=== PATIENT | female | born 1980 | race Caucasian/White ===

== ENCOUNTER 2017-06-19 22:30 | Emergency (ER) | payer MEDICAID ==
[~2017-06-19] VITALS: Ht 147.3 cm; Wt 80.9 kg
[~2017-06-19 22:30] MED LIST: CEPH500C5 PO; CLOT15CR5 TOP; CYCL-1 PO; HYDR-3965 PO; HYDR1TAB PO; IBUP-1051 PO; IBUP-1984 PO; IBUP-814 PO; LEVO500T89 PO; LIDO20SO16 PO; NO HOME MEDS; OMEP40CA37 PO; ONDA4TAB12 PO; ONDA8TAB9 PO; PHEN-873 PO; PROM25TA14 PO
[2017-06-20] MEDS ORDERED: dexamethasone sod phosphate 10mg/ml inj IM STA (01:42)
[2017-06-20] MEDS ORDERED: diphenhydrAMINE 50 mg/ml inj IM ONE (01:45)
[2017-06-20] MEDS ORDERED: proCHLORperazine 10 MG/2 ml inj IM ONE (01:45)
[2017-06-20] MEDS ORDERED: ketorolac trometh. 30mg/ml inj. IM ONE (02:35)
[2017-06-20 03:04] VITALS: BP 132/104
== END 2017-06-20 03:05 | disposition home or self-care (01) ==
LOC: ER 22:31
DX: G43.909 Migraine, unspecified, not intractable, without status migrainosus (principal); I10 Essential (primary) hypertension; J45.909 Unspecified asthma, uncomplicated; Z88.8 Allergy status to other drugs, medicaments and biological substances; Z79.899 Other long term (current) drug therapy; Z98.51 Tubal ligation status
CPT/HCPCS: 96372; 99284; J0780; J1100; J1200; J1885

== ENCOUNTER 2018-03-29 12:23 | Emergency (ER) | payer MEDICAID ==
[~2018-03-29] VITALS: Ht 147.3 cm; Wt 79.3 kg
[~2018-03-29 12:23] MED LIST changes: -CEPH500C5 PO; +PHEN-786 PO; -PHEN-873 PO
[2018-03-29 12:36] VITALS: BP 135/78
[2018-03-29] MEDS ORDERED: HYDROcodone/acetaminophen 10/325mg tab PO ONE (12:50)
[2018-03-29] MEDS ORDERED: HYDR-4353 PO (12:50)
[2018-03-29] MEDS ORDERED: ketorolac trometh inj. 60 MG/2 ML VIAL IM ONE (12:50)
[2018-03-29] MEDS ORDERED: orphenadrine citrate 60mg/2ml inj. IM ONE (12:50)
[2018-03-29] MEDS ORDERED: ORPH100T2 PO (12:50)
== END 2018-03-29 13:13 | disposition home or self-care (01) ==
LOC: ER 12:23
DX: M54.5 Low back pain (principal); I10 Essential (primary) hypertension; G89.29 Other chronic pain; J45.909 Unspecified asthma, uncomplicated; G43.909 Migraine, unspecified, not intractable, without status migrainosus; F17.200 Nicotine dependence, unspecified, uncomplicated; Z98.51 Tubal ligation status; Z88.8 Allergy status to other drugs, medicaments and biological substances; Z79.2 Long term (current) use of antibiotics; Z79.899 Other long term (current) drug therapy
CPT/HCPCS: 96372; 99284; J1885; J2360

== ENCOUNTER 2018-04-23 16:05 | Emergency (ER) | payer MEDICAID ==
[~2018-04-23] VITALS: Ht 147.3 cm; Wt 76.5 kg
[~2018-04-23 16:05] MED LIST changes: +HYDR-4353 PO; +ORPH100T2 PO
[2018-04-23] MEDS ORDERED: normal saline 1000ml 1,000 ML IV ONE (16:45)
[2018-04-23] MEDS ORDERED: ondansetron/PF 4mg/2ml inj IV ONE (16:45)
[2018-04-23 17:00] LABS: BASOPHILS % (AUTO) 0 % (0-1); EOSINOPHILS # (AUTO) 0.1 X10'3 (0-0.9); EOSINOPHILS % (AUTO) 0.9 % (0-6); HEMATOCRIT 42.1 % (35.0-45.0); LYMPHOCYTES # (AUTO) 0.6 X10'3 (1.1-4.8); LYMPHOCYTES % (AUTO) 4.5 % (21-51); MEAN CORPUSCULAR HEMOGLOBIN 27.6 PG (27.0-31.0); MEAN CORPUSCULAR HGB CONC 33.3 % (33.0-36.5); MEAN CORPUSCULAR VOLUME 82.8 FL (78-98); MEAN PLATELET VOLUME 9.9 FL (7.4-10.4); MONOCYTES # (AUTO) 0.3 X10'3 (0-0.9); MONOCYTES % (AUTO) 2.5 % (2-12); NEUTROPHILS # (AUTO) 12.4 X10'3 (1.8-7.7); NEUTROPHILS % (AUTO) 92.1 % (42-75); PLATELET COUNT 232 X10'3 (140-440); RED BLOOD COUNT 5.08 X10'6 (4.20-5.60); RED CELL DISTRIBUTION WIDTH 16.1 % (11.5-14.5); WHITE BLOOD COUNT 13.4 X10'3 (4.5-11.0)
[2018-04-23 17:16] LABS: ALANINE AMINOTRANSFERASE 26 U/L (12-78); ALBUMIN 3.7 G/DL (3.4-5.0); ALKALINE PHOSPHATASE 93 IU/L (46-116); ANION GAP 9 (8-16); ASPARTATE AMINO TRANSFERASE 18 U/L (10-37); BILIRUBIN,TOTAL 0.5 MG/DL (0.1-1.0); BLOOD UREA NITROGEN 13 MG/DL (7-18); BUN/CREATININE RATIO 16.9 (6.6-38.0); CALCIUM 8.9 MG/DL (8.5-10.1); CHLORIDE 105 MMOL/L (99-107); CREATININE 0.77 MG/DL (0.40-0.90); GLUCOSE 119 MG/DL (70-104); LIPASE 119 U/L (73-393); MAGNESIUM 1.7 MG/DL (1.5-2.4); POTASSIUM 3.8 MMOL/L (3.5-5.1); SODIUM 142 MMOL/L (135-145); TOTAL CARBON DIOXIDE 27.6 MMOL/L (24-32); TOTAL PROTEIN 7.3 G/DL (6.4-8.2); eGFR 83 ML/MIN
[2018-04-23] MEDS ORDERED: proCHLORperazine 10 MG/2 ml inj IV ONE (18:50)
[2018-04-23 19:06] VITALS: BP 137/78
[2018-04-23 19:54] LABS: CLARITY,URINE CLEAR (Clear); COLOR,URINE YELLOW (Yellow); GLUCOSE, URINE NEGATIVE (Neg); KETONES,URINE >=80 mg/dl (Neg); LEUKOCYTE ESTERASE ,URINE NEGATIVE (Neg); NITRITES, URINE NEGATIVE (Neg); OCCULT BLOOD,URINE TRACE-INTACT (Neg); PROTEIN,URINE NEGATIVE (Neg)
[2018-04-23 20:15] LABS: UA COLLECTION TYPE CLN CATCH MIDSTREAM
[2018-04-23 20:16] LABS: BACTERIA,URINE NONE SEEN /HPF (Neg); RBC,URINE 0-2 /HPF (0-2); SQUAMOUS EPITHELIAL CELL,UR FEW /LPF (FEW); WBC,URINE NONE SEEN /HPF (0-4)
== END 2018-04-23 19:54 | disposition home or self-care (01) ==
LOC: ER 16:05
DX: R11.2 Nausea with vomiting, unspecified (principal); R51 Headache; I10 Essential (primary) hypertension; J45.909 Unspecified asthma, uncomplicated; G89.29 Other chronic pain; Z98.51 Tubal ligation status; Z88.8 Allergy status to other drugs, medicaments and biological substances; Z79.899 Other long term (current) drug therapy
CPT/HCPCS: 36415; 80053; 81001; 83690; 83735; 85025; 96361; 96374; 96375; 99284; J0780; J2405

== ENCOUNTER 2018-07-19 11:20 | Emergency (ER) | payer MEDICAID ==
[~2018-07-19] VITALS: Ht 147.3 cm; Wt 77.0 kg
[~2018-07-19 11:20] MED LIST changes: -HYDR-4353 PO
[2018-07-19] MEDS ORDERED: ketorolac trometh inj. 60 MG/2 ML VIAL IM ONE (12:25)
[2018-07-19] MEDS ORDERED: IBUP-1984 PO (12:28)
[2018-07-19] MEDS ORDERED: CYCL-1 PO (12:28)
[2018-07-19] MEDS ORDERED: ACET-3067 PO (12:28)
[2018-07-19 12:41] VITALS: BP 149/86
== END 2018-07-19 12:45 | disposition home or self-care (01) ==
LOC: ER 11:21
DX: M54.5 Low back pain (principal); G43.909 Migraine, unspecified, not intractable, without status migrainosus; I10 Essential (primary) hypertension; J45.909 Unspecified asthma, uncomplicated; G89.29 Other chronic pain; M54.9 Dorsalgia, unspecified; Z98.51 Tubal ligation status; Z88.8 Allergy status to other drugs, medicaments and biological substances
CPT/HCPCS: 96372; 99283; J1885

== ENCOUNTER 2018-08-19 10:10 | Emergency (ER) | payer MEDICAID ==
[~2018-08-19] VITALS: Ht 147.3 cm; Wt 75.9 kg
[2018-08-19 10:16] VITALS: BP 160/97
[2018-08-19] MEDS ORDERED: CEPH-571 PO (11:20)
== END 2018-08-19 11:24 | disposition home or self-care (01) ==
LOC: ER 10:10
DX: S00.461A Insect bite (nonvenomous) of right ear, initial encounter (principal); H60.11 Cellulitis of right external ear; G43.909 Migraine, unspecified, not intractable, without status migrainosus; I10 Essential (primary) hypertension; J45.909 Unspecified asthma, uncomplicated; G89.29 Other chronic pain; Z98.51 Tubal ligation status; Z88.8 Allergy status to other drugs, medicaments and biological substances; Z79.899 Other long term (current) drug therapy; W57.XXXA Bitten or stung by nonvenomous insect and other nonvenomous arthropods, initial encounter; Y93.89 Activity, other specified; Y92.89 Other specified places as the place of occurrence of the external cause; Y99.8 Other external cause status
CPT/HCPCS: 99283

== ENCOUNTER 2018-12-01 12:34 | Emergency (ER) | payer MEDICAID ==
[~2018-12-01] VITALS: Ht 147.3 cm; Wt 83.2 kg
[~2018-12-01 12:34] MED LIST changes: +CEPH-571 PO
[2018-12-01] MEDS ORDERED: normal saline 1000ML IV soln IVB ONE (13:25)
[2018-12-01] MEDS ORDERED: ketorolac trometh. 30mg/ml inj. IV ONE (13:25)
[2018-12-01] MEDS ORDERED: HYDROcodone/acetaminophen 5mg/325mg tablet PO ONE (13:25)
[2018-12-01 14:06] LABS: ALANINE AMINOTRANSFERASE 14 U/L (12-78); ALBUMIN 3.4 G/DL (3.4-5.0); ALBUMIN/GLOBULIN RATIO 0.9 (1.1-1.5); ALKALINE PHOSPHATASE 77 IU/L (46-116); ANION GAP 4 (8-16); ASPARTATE AMINO TRANSFERASE 9 U/L (10-37); BILIRUBIN,TOTAL 0.2 MG/DL (0.1-1.0); BLOOD UREA NITROGEN 10 MG/DL (7-18); CALCIUM 9.4 MG/DL (8.5-10.1); CHLORIDE 106 MMOL/L (99-107); CREATININE 0.77 MG/DL (0.40-0.90); GLUCOSE 95 MG/DL (70-104); SODIUM 138 MMOL/L (135-145); TOTAL CARBON DIOXIDE 28.3 MMOL/L (24-32); eGFR 83 ML/MIN
--- NOTE | 2018-12-01 14:24 | NUR ---
PT TRIED TO VOID, MAYBE 5CC IN CUP, RED URINE. TOLD PT TO TRY TO VOID AFTER BAG OF FLUID IS IN.
[2018-12-01 15:00] LABS: BASOPHILS % (AUTO) 0.7 % (0-1); EOSINOPHILS # (AUTO) 0.1 X10'3 (0-0.9); EOSINOPHILS % (AUTO) 1.9 % (0-6); HEMATOCRIT 35.6 % (35.0-45.0); HEMOGLOBIN 11.8 g/dl (12.0-16.0); LYMPHOCYTES # (AUTO) 2.1 X10'3 (1.1-4.8); LYMPHOCYTES % (AUTO) 29.3 % (21-51); MEAN CORPUSCULAR HEMOGLOBIN 27.5 PG (27.0-31.0); MEAN CORPUSCULAR VOLUME 83.2 FL (78-98); MEAN PLATELET VOLUME 9.4 FL (7.4-10.4); MONOCYTES # (AUTO) 0.8 X10'3 (0-0.9); MONOCYTES % (AUTO) 10.6 % (2-12); NEUTROPHILS # (AUTO) 4.1 X10'3 (1.8-7.7); NEUTROPHILS % (AUTO) 57.5 % (42-75); PLATELET COUNT 236 X10'3 (140-440); RED BLOOD COUNT 4.28 X10'6 (4.20-5.60); RED CELL DISTRIBUTION WIDTH 16.2 % (11.5-14.5); WHITE BLOOD COUNT 7.2 X10'3 (4.5-11.0)
[2018-12-01] MEDS ORDERED: KETO10TA2 PO (15:28)
[2018-12-01 15:35] VITALS: BP 124/85
== END 2018-12-01 15:39 | disposition home or self-care (01) ==
LOC: ER 12:34
DX: N93.8 Other specified abnormal uterine and vaginal bleeding (principal); R10.84 Generalized abdominal pain; G43.909 Migraine, unspecified, not intractable, without status migrainosus; I10 Essential (primary) hypertension; J45.909 Unspecified asthma, uncomplicated; G89.29 Other chronic pain; Z98.51 Tubal ligation status; Z88.8 Allergy status to other drugs, medicaments and biological substances; Z79.2 Long term (current) use of antibiotics; Z79.899 Other long term (current) drug therapy
CPT/HCPCS: 36415; 80053; 85025; 96374; 99283; J1885; J7030

== ENCOUNTER 2019-01-18 20:33 | Emergency (ER) | payer MEDICAID ==
[~2019-01-18] VITALS: Ht 147.3 cm; Wt 80.0 kg
[~2019-01-18 20:33] MED LIST changes: +KETO10TA2 PO; +OMEP40CA13 PO; -OMEP40CA37 PO
[2019-01-18] MEDS ORDERED: HYDROcodone/acetaminophen 5mg/325mg tablet PO ONE (21:55)
[2019-01-18] MEDS ORDERED: diphenhydrAMINE 25mg capsule PO ONE (21:55)
[2019-01-18] MEDS ORDERED: acetaminophen 325mg tablet PO ONE (21:55)
[2019-01-18] MEDS ORDERED: ondansetron 4mg rapidly disintigrating tab PO ONE (21:55)
[2019-01-18 22:02] LABS: BASOPHILS % (AUTO) 0.5 % (0-1); EOSINOPHILS # (AUTO) 0.1 X10'3 (0-0.9); EOSINOPHILS % (AUTO) 1.8 % (0-6); HEMATOCRIT 38.4 % (35.0-45.0); HEMOGLOBIN 12.8 g/dl (12.0-16.0); LYMPHOCYTES # (AUTO) 2.5 X10'3 (1.1-4.8); LYMPHOCYTES % (AUTO) 32.6 % (21-51); MEAN CORPUSCULAR HEMOGLOBIN 27.2 PG (27.0-31.0); MEAN CORPUSCULAR HGB CONC 33.2 g/dL (33.0-36.5); MEAN CORPUSCULAR VOLUME 81.8 FL (78-98); MEAN PLATELET VOLUME 9.6 FL (7.4-10.4); MONOCYTES # (AUTO) 0.7 X10'3 (0-0.9); MONOCYTES % (AUTO) 8.9 % (2-12); NEUTROPHILS # (AUTO) 4.4 X10'3 (1.8-7.7); NEUTROPHILS % (AUTO) 56.2 % (42-75); PLATELET COUNT 232 X10'3 (140-440); RED BLOOD COUNT 4.69 X10'6 (4.20-5.60); RED CELL DISTRIBUTION WIDTH 15.8 % (11.5-14.5); WHITE BLOOD COUNT 7.8 X10'3 (4.5-11.0)
[2019-01-18 22:11] LABS: ALANINE AMINOTRANSFERASE 22 U/L (12-78); ALBUMIN 3.4 G/DL (3.4-5.0); ALKALINE PHOSPHATASE 75 IU/L (46-116); ANION GAP 6 (8-16); ASPARTATE AMINO TRANSFERASE 14 U/L (10-37); BILIRUBIN,TOTAL 0.3 MG/DL (0.1-1.0); BLOOD UREA NITROGEN 17 MG/DL (7-18); BUN/CREATININE RATIO 17.2 (6.6-38.0); CALCIUM 8.2 MG/DL (8.5-10.1); CHLORIDE 108 MMOL/L (99-107); CREATININE 0.99 MG/DL (0.40-0.90); GLUCOSE 106 MG/DL (70-104); POTASSIUM 3.6 MMOL/L (3.5-5.1); SODIUM 141 MMOL/L (135-145); TOTAL CARBON DIOXIDE 27.5 MMOL/L (24-32); TOTAL PROTEIN 6.7 G/DL (6.4-8.2); eGFR 62 ML/MIN
[2019-01-18 22:23] LABS: URINE HCG NEGATIVE (NEG)
[2019-01-18 22:26] LABS: CLARITY,URINE SLIGHTLY CLOUDY (Clear); COLOR,URINE YELLOW (Yellow); GLUCOSE, URINE NEGATIVE (Neg); KETONES,URINE TRACE mg/dl (Neg); LEUKOCYTE ESTERASE ,URINE NEGATIVE (Neg); NITRITES, URINE NEGATIVE (Neg); OCCULT BLOOD,URINE LARGE (Neg); PROTEIN,URINE NEGATIVE (Neg); UROBILINOGEN,URINE 0.2 E.U/dL (0.2-1.0)
[2019-01-18 22:29] LABS: UA COLLECTION TYPE CLN CATCH MIDSTREAM
--- NOTE | 2019-01-18 22:29 | NUR ---
Patient currently rolling around on bed, laughing with friend who is at bedside and playing on cell phone.
[2019-01-18 22:32] LABS: BACTERIA,URINE NONE SEEN /HPF (Neg); MUCUS STRANDS FEW /LPF (Neg); SQUAMOUS EPITHELIAL CELL,UR MANY /LPF (FEW); WBC,URINE NONE SEEN /HPF (0-4)
[2019-01-18] MEDS ORDERED: HYDR-3965 PO (22:40)
[2019-01-18] MEDS ORDERED: DIPH25CA83 PO (22:40)
[2019-01-18] MEDS ORDERED: ONDA8TAB6 PO (22:40)
[2019-01-18 22:50] VITALS: BP 127/65
== END 2019-01-18 22:51 | disposition home or self-care (01) ==
LOC: ER 20:33
DX: R10.9 Unspecified abdominal pain (principal); G43.909 Migraine, unspecified, not intractable, without status migrainosus; I10 Essential (primary) hypertension; J45.909 Unspecified asthma, uncomplicated; G89.29 Other chronic pain; F10.99 Alcohol use, unspecified with unspecified alcohol-induced disorder; Z98.51 Tubal ligation status; Z88.8 Allergy status to other drugs, medicaments and biological substances; Z79.899 Other long term (current) drug therapy; Y90.9 Presence of alcohol in blood, level not specified
CPT/HCPCS: 36415; 80053; 81001; 81025; 85025; 85610; 99284; J2405; Q0163

== ENCOUNTER 2019-07-06 16:21 | Emergency (ER) | payer MEDICAID ==
[~2019-07-06] VITALS: Ht 147.3 cm; Wt 83.6 kg
[~2019-07-06 16:21] MED LIST changes: +DIPH25CA83 PO; +ONDA8TAB6 PO
[2019-07-06 17:55] LABS: BASOPHILS % (AUTO) 0.4 % (0-1); EOSINOPHILS # (AUTO) 0.1 X10'3 (0-0.9); EOSINOPHILS % (AUTO) 0.9 % (0-6); HEMATOCRIT 36.8 % (35.0-45.0); HEMOGLOBIN 12.3 g/dl (12.0-16.0); LYMPHOCYTES # (AUTO) 1.5 X10'3 (1.1-4.8); LYMPHOCYTES % (AUTO) 14.3 % (21-51); MEAN CORPUSCULAR HEMOGLOBIN 26.4 PG (27.0-31.0); MEAN CORPUSCULAR HGB CONC 33.4 g/dL (33.0-36.5); MEAN PLATELET VOLUME 8.9 FL (7.4-10.4); MONOCYTES # (AUTO) 0.8 X10'3 (0-0.9); MONOCYTES % (AUTO) 7.5 % (2-12); NEUTROPHILS % (AUTO) 76.9 % (42-75); PLATELET COUNT 284 X10'3 (140-440); RED BLOOD COUNT 4.66 X10'6 (4.20-5.60); RED CELL DISTRIBUTION WIDTH 15.6 % (11.5-14.5); WHITE BLOOD COUNT 10.4 X10'3 (4.5-11.0)
[2019-07-06 18:12] LABS: ALANINE AMINOTRANSFERASE 27 U/L (12-78); ALBUMIN 3.3 G/DL (3.4-5.0); ALBUMIN/GLOBULIN RATIO 0.8 (1.1-1.5); ALKALINE PHOSPHATASE 93 IU/L (46-116); ANION GAP 9 (8-16); ASPARTATE AMINO TRANSFERASE 18 U/L (10-37); BILIRUBIN,TOTAL 0.3 MG/DL (0.1-1.0); BLOOD UREA NITROGEN 7 MG/DL (7-18); BUN/CREATININE RATIO 9.5 (6.6-38.0); CALCIUM 8.9 MG/DL (8.5-10.1); CHLORIDE 104 MMOL/L (99-107); CREATININE 0.74 MG/DL (0.40-0.90); GLUCOSE 106 MG/DL (70-104); LIPASE 65 U/L (73-393); POTASSIUM 3.7 MMOL/L (3.5-5.1); SODIUM 140 MMOL/L (135-145); TOTAL CARBON DIOXIDE 27.4 MMOL/L (24-32); TOTAL PROTEIN 7.7 G/DL (6.4-8.2); eGFR 87 ML/MIN
[2019-07-06 18:21] LABS: URINE HCG NEGATIVE (NEG)
[2019-07-06 18:23] LABS: CLARITY,URINE TURBID (Clear); COLOR,URINE YELLOW (Yellow); GLUCOSE, URINE NEGATIVE (Neg); KETONES,URINE 40 mg/dl (Neg); LEUKOCYTE ESTERASE ,URINE LARGE (Neg); NITRITES, URINE NEGATIVE (Neg); OCCULT BLOOD,URINE MODERATE (Neg); PROTEIN,URINE TRACE mg/dl (Neg); UA COLLECTION TYPE VOIDED
[2019-07-06 18:28] LABS: SQUAMOUS EPITHELIAL CELL,UR MANY /LPF (FEW)
--- NOTE | 2019-07-06 18:30 | NUR ---
LAB REJECTED URINE FOR CULTURE
[2019-07-06 18:31] LABS: MUCUS STRANDS FEW /LPF (Neg); TRANSITIONAL EPI CELLS,URINE FEW /HPF; WBC,URINE TNTC /HPF (0-4)
[2019-07-06 18:33] LABS: BACTERIA,URINE 4+ /HPF (Neg)
[2019-07-06] MEDS ORDERED: glycerin ADULT rectal suppository RC ONE (19:40)
[2019-07-06] MEDS ORDERED: magnesium citrate 296ml oral solution PO ONE (19:40)
[2019-07-06] MEDS ORDERED: ondansetron 4mg rapidly disintigrating tab PO STA (20:35)
--- NOTE | 2019-07-06 20:35 | NUR ---
PT STATES SHE HAD A SMALL BM, REPORTS FEELING VERY NAUSEATED
--- NOTE | 2019-07-06 21:47 | NUR ---
PT UNABLE TO PASS PO CHALLENGE "I TRIED BUT I FEEL LIKE VOMITING", Yasmin RUFFIN AWARE AND GAVE VERBAL ORDER FOR COMPAZINE 10MG PO X1 NOW
[2019-07-06] MEDS ORDERED: proCHLORperazine 10mg tablet PO ONE (21:50)
[2019-07-06] MEDS ORDERED: ondansetron 4mg rapidly disintigrating tab PO ONE (22:15)
--- NOTE | 2019-07-06 22:15 | NUR ---
PT ALLERGIC TO COMPYasmin RITTER AWARE AND GAVE VERBAL ORDER FOR ZOFRAN 4MG ODT
--- NOTE | 2019-07-06 22:19 | NUR ---
pt up to the bathroom again.
[2019-07-06 22:37] VITALS: BP 111/64
== END 2019-07-06 22:38 | disposition home or self-care (01) ==
LOC: ER 16:22
DX: K59.00 Constipation, unspecified (principal); I10 Essential (primary) hypertension; J45.909 Unspecified asthma, uncomplicated; G89.29 Other chronic pain; Z90.710 Acquired absence of both cervix and uterus; Z98.51 Tubal ligation status; Z88.8 Allergy status to other drugs, medicaments and biological substances; Z79.2 Long term (current) use of antibiotics; Z79.899 Other long term (current) drug therapy
CPT/HCPCS: 36415; 80053; 81001; 81025; 83690; 85025; 99284; Q0164

== ENCOUNTER 2019-12-18 19:20 | Emergency (ER) | payer MEDICAID ==
[~2019-12-18] VITALS: Ht 147.3 cm; Wt 84.0 kg
[~2019-12-18 19:20] MED LIST changes: +CLOT15CR35 TOP; -CLOT15CR5 TOP
[2019-12-18 19:33] VITALS: BP 167/102
[2019-12-18] MEDS ORDERED: DOXYCYCLINE 100MG CAPSULE PO STA (21:19)
[2019-12-18] MEDS ORDERED: cephalexin 250mg capsule PO ONE (21:20)
[2019-12-18] MEDS ORDERED: DOXY100C2 PO (21:33)
[2019-12-18] MEDS ORDERED: CEPH500C5 PO (21:33)
[2019-12-18] MEDS ORDERED: ondansetron 4mg/5ml UD cup PO ONE (21:35)
[2019-12-18] MEDS ORDERED: ondansetron 4mg rapidly disintigrating tab PO ONE (21:45)
== END 2019-12-18 21:48 | disposition home or self-care (01) ==
LOC: ER 19:20
DX: L03.114 Cellulitis of left upper limb (principal); L03.113 Cellulitis of right upper limb; L73.9 Follicular disorder, unspecified; G43.909 Migraine, unspecified, not intractable, without status migrainosus; I10 Essential (primary) hypertension; J45.909 Unspecified asthma, uncomplicated; G89.29 Other chronic pain; Z90.710 Acquired absence of both cervix and uterus; Z98.51 Tubal ligation status; Z72.89 Other problems related to lifestyle; Z88.8 Allergy status to other drugs, medicaments and biological substances; Z79.899 Other long term (current) drug therapy
CPT/HCPCS: 99284

== ENCOUNTER 2019-12-25 16:41 | Emergency (ER) | payer MEDICAID ==
[~2019-12-25] VITALS: Ht 147.3 cm; Wt 79.5 kg
[~2019-12-25 16:41] MED LIST changes: +CEPH500C5 PO; +DOXY100C2 PO
[2019-12-25 16:45] VITALS: BP 132/84
[2019-12-25] MEDS ORDERED: SULF1TAB49 PO (17:06)
== END 2019-12-25 17:10 | disposition home or self-care (01) ==
LOC: ER 16:42
DX: L03.114 Cellulitis of left upper limb (principal); R50.9 Fever, unspecified; R11.10 Vomiting, unspecified; G43.909 Migraine, unspecified, not intractable, without status migrainosus; I10 Essential (primary) hypertension; J45.909 Unspecified asthma, uncomplicated; G89.29 Other chronic pain; Z90.710 Acquired absence of both cervix and uterus; Z87.440 Personal history of urinary (tract) infections; Z98.51 Tubal ligation status; Z72.89 Other problems related to lifestyle; Z88.8 Allergy status to other drugs, medicaments and biological substances; Z79.2 Long term (current) use of antibiotics; Z79.899 Other long term (current) drug therapy
CPT/HCPCS: 99283

== ENCOUNTER 2020-02-29 17:19 | Emergency (ER) | payer MEDICAID ==
[~2020-02-29] VITALS: Ht 147.3 cm; Wt 80.0 kg
[~2020-02-29 17:19] MED LIST changes: -CEPH500C5 PO; -DOXY100C2 PO
[2020-02-29 17:43] VITALS: BP 158/81
== END 2020-02-29 18:19 | disposition home or self-care (01) ==
LOC: ER 17:20
DX: Z00.00 Encounter for general adult medical examination without abnormal findings (principal); G43.909 Migraine, unspecified, not intractable, without status migrainosus; I10 Essential (primary) hypertension; J45.909 Unspecified asthma, uncomplicated; G89.29 Other chronic pain; Z90.710 Acquired absence of both cervix and uterus; Z98.51 Tubal ligation status; Z72.89 Other problems related to lifestyle; Z88.8 Allergy status to other drugs, medicaments and biological substances; Z79.899 Other long term (current) drug therapy
CPT/HCPCS: 99281

== ENCOUNTER 2020-03-15 11:29 | Emergency (ER) | payer MEDICAID ==
[~2020-03-15] VITALS: Ht 147.3 cm; Wt 80.0 kg
[2020-03-15 11:30] VITALS: BP 133/81
[2020-03-15] MEDS ORDERED: ONDA4TAB6 PO (11:51)
== END 2020-03-15 12:01 | disposition home or self-care (01) ==
LOC: ER 11:29
DX: R53.83 Other fatigue (principal); R42 Dizziness and giddiness; R11.0 Nausea; Z20.828 Contact with and (suspected) exposure to other viral communicable diseases; G43.909 Migraine, unspecified, not intractable, without status migrainosus; I10 Essential (primary) hypertension; J45.909 Unspecified asthma, uncomplicated; G89.29 Other chronic pain; Z90.710 Acquired absence of both cervix and uterus; Z98.51 Tubal ligation status; Z72.89 Other problems related to lifestyle; Z88.8 Allergy status to other drugs, medicaments and biological substances; Z79.899 Other long term (current) drug therapy
CPT/HCPCS: 36415; 87635; 99283

== ENCOUNTER 2020-03-28 23:50 | Emergency (ER) | payer MEDICAID ==
[~2020-03-28] VITALS: Ht 147.3 cm; Wt 79.5 kg
[~2020-03-28 23:50] MED LIST changes: +ONDA4TAB6 PO
[2020-03-28 23:54] VITALS: BP 175/95
[2020-03-29 00:33] LABS: URINE HCG NEGATIVE (NEG)
[2020-03-29 00:33] LABS: BASOPHILS # (AUTO) 0.1 X10'3 (0-0.2); EOSINOPHILS # (AUTO) 0.1 X10'3 (0-0.9); EOSINOPHILS % (AUTO) 1.6 % (0-6); HEMATOCRIT 42.1 % (35.0-45.0); HEMOGLOBIN 14.6 g/dl (12.0-16.0); LYMPHOCYTES # (AUTO) 2.8 X10'3 (1.1-4.8); LYMPHOCYTES % (AUTO) 32.9 % (21-51); MEAN CORPUSCULAR HEMOGLOBIN 30.3 PG (27.0-31.0); MEAN CORPUSCULAR HGB CONC 34.7 g/dL (33.0-36.5); MEAN CORPUSCULAR VOLUME 87.5 FL (78-98); MEAN PLATELET VOLUME 9.5 FL (7.4-10.4); MONOCYTES # (AUTO) 0.8 X10'3 (0-0.9); MONOCYTES % (AUTO) 9.3 % (2-12); NEUTROPHILS # (AUTO) 4.6 X10'3 (1.8-7.7); NEUTROPHILS % (AUTO) 55.2 % (42-75); PLATELET COUNT 238 X10'3 (140-440); RED BLOOD COUNT 4.81 X10'6 (4.20-5.60); RED CELL DISTRIBUTION WIDTH 13.8 % (11.5-14.5); WHITE BLOOD COUNT 8.4 X10'3 (4.5-11.0)
[2020-03-29 00:50] LABS: CLARITY,URINE CLEAR (Clear); COLOR,URINE YELLOW (Yellow); GLUCOSE, URINE NEGATIVE (Neg); KETONES,URINE NEGATIVE (Neg); LEUKOCYTE ESTERASE ,URINE SMALL (Neg); NITRITES, URINE POSITIVE (Neg); OCCULT BLOOD,URINE LARGE (Neg); PROTEIN,URINE TRACE mg/dl (Neg); UA COLLECTION TYPE CLN CATCH MIDSTREAM
[2020-03-29 00:54] LABS: SQUAMOUS EPITHELIAL CELL,UR MANY /LPF (FEW); WBC CLUMPS,URINE MODERATE /HPF (NEGATIVE); WBC,URINE TNTC /HPF (0-4)
[2020-03-29 00:58] LABS: BACTERIA,URINE 4+ /HPF (Neg)
[2020-03-29 01:13] LABS: ALANINE AMINOTRANSFERASE 23 U/L (12-78); ALBUMIN 3.6 G/DL (3.4-5.0); ALKALINE PHOSPHATASE 85 IU/L (46-116); ANION GAP 8 (8-16); ASPARTATE AMINO TRANSFERASE 15 U/L (10-37); BILIRUBIN,TOTAL 0.3 MG/DL (0.1-1.0); BLOOD UREA NITROGEN 10 MG/DL (7-18); CALCIUM 8.9 MG/DL (8.5-10.1); CHLORIDE 103 MMOL/L (99-107); GLUCOSE 105 MG/DL (70-104); LIPASE 79 U/L (73-393); POTASSIUM 3.5 MMOL/L (3.5-5.1); SODIUM 139 MMOL/L (135-145); TOTAL PROTEIN 7.3 G/DL (6.4-8.2); eGFR 61 ML/MIN
[2020-03-29] MEDS ORDERED: cyclobenzaprine 10mg tablet PO ONE (01:15)
[2020-03-29 01:44] LABS: CLARITY,URINE CLEAR (Clear); COLOR,URINE YELLOW (Yellow); GLUCOSE, URINE NEGATIVE (Neg); KETONES,URINE NEGATIVE (Neg); LEUKOCYTE ESTERASE ,URINE SMALL (Neg); NITRITES, URINE POSITIVE (Neg); OCCULT BLOOD,URINE LARGE (Neg); PH,URINE 5.5 (4.8-8.0); PROTEIN,URINE 30 mg/dl (Neg); UROBILINOGEN,URINE 0.2 E.U/dL (0.2-1.0)
[2020-03-29 01:46] LABS: UA COLLECTION TYPE STRAIGHT CATH
[2020-03-29 02:01] LABS: BACTERIA,URINE 3+ /HPF (Neg); SQUAMOUS EPITHELIAL CELL,UR MODERATE /LPF (FEW); WBC CLUMPS,URINE FEW /HPF (NEGATIVE); WBC,URINE TNTC /HPF (0-4)
[2020-03-29] MEDS ORDERED: SULF1TAB49 PO ×2 (02:13→02:26)
[2020-03-29] MEDS ORDERED: CYCL-1 PO ×2 (02:13→02:26)
[2020-03-29] MEDS ORDERED: sulfamethoxazole/trimethoprim DS (800/160mg) tablet PO ONE (02:30)
--- NOTE | 2020-03-29 02:38 | NUR ---
Pt very upset with provider. States that she did not listen to her and her concerns.
== END 2020-03-29 02:46 | disposition home or self-care (01) ==
LOC: ER 23:51
DX: N39.0 Urinary tract infection, site not specified (principal); M54.6 Pain in thoracic spine; G43.909 Migraine, unspecified, not intractable, without status migrainosus; I10 Essential (primary) hypertension; J45.909 Unspecified asthma, uncomplicated; G89.29 Other chronic pain; Z90.710 Acquired absence of both cervix and uterus; Z98.51 Tubal ligation status; Z72.89 Other problems related to lifestyle; Z88.8 Allergy status to other drugs, medicaments and biological substances; Z79.899 Other long term (current) drug therapy
CPT/HCPCS: 36415; 80053; 81001; 81025; 83690; 85025; 87088; 99283

== ENCOUNTER 2020-10-24 21:36 | Emergency (ER) | payer MEDICAID ==
[~2020-10-24] VITALS: Ht 147.3 cm; Wt 88.6 kg
[2020-10-24 21:51] VITALS: BP 169/103
[2020-10-24 22:24] LABS: BASOPHILS # (AUTO) 0.1 X10'3 (0-0.2); BASOPHILS % (AUTO) 0.9 % (0-1); EOSINOPHILS # (AUTO) 0.1 X10'3 (0-0.9); EOSINOPHILS % (AUTO) 1.2 % (0-6); HEMATOCRIT 42.7 % (35.0-45.0); HEMOGLOBIN 14.6 g/dl (12.0-16.0); LYMPHOCYTES # (AUTO) 3.2 X10'3 (1.1-4.8); LYMPHOCYTES % (AUTO) 36.2 % (21-51); MEAN CORPUSCULAR HEMOGLOBIN 30.4 PG (27.0-31.0); MEAN CORPUSCULAR HGB CONC 34.3 g/dL (33.0-36.5); MEAN CORPUSCULAR VOLUME 88.6 FL (78-98); MEAN PLATELET VOLUME 9.3 FL (7.4-10.4); MONOCYTES # (AUTO) 0.7 X10'3 (0-0.9); MONOCYTES % (AUTO) 8.3 % (2-12); NEUTROPHILS # (AUTO) 4.8 X10'3 (1.8-7.7); NEUTROPHILS % (AUTO) 53.4 % (42-75); PLATELET COUNT 250 X10'3 (140-440); RED BLOOD COUNT 4.82 X10'6 (4.20-5.60); RED CELL DISTRIBUTION WIDTH 12.9 % (11.5-14.5)
[2020-10-24 22:24] LABS: CLARITY,URINE SLIGHTLY CLOUDY (Clear); COLOR,URINE YELLOW (Yellow); GLUCOSE, URINE NEGATIVE (Neg); KETONES,URINE NEGATIVE (Neg); LEUKOCYTE ESTERASE ,URINE TRACE (Neg); NITRITES, URINE NEGATIVE (Neg); OCCULT BLOOD,URINE NEGATIVE (Neg); PH,URINE 5.5 (4.8-8.0); PROTEIN,URINE NEGATIVE (Neg)
[2020-10-24 22:25] LABS: UA COLLECTION TYPE CLN CATCH MIDSTREAM
[2020-10-24 22:26] LABS: URINE HCG NEGATIVE (NEG)
--- NOTE | 2020-10-24 22:27 | NUR ---
pt to room, assumed care.
[2020-10-24 22:31] LABS: BACTERIA,URINE 2+ /HPF (Neg); RBC,URINE NONE SEEN /HPF (0-2); SQUAMOUS EPITHELIAL CELL,UR MODERATE /LPF (FEW); WBC,URINE 0-4 /HPF (0-4)
[2020-10-24 22:37] LABS: ALANINE AMINOTRANSFERASE 21 U/L (12-78); ALBUMIN 3.5 G/DL (3.4-5.0); ALKALINE PHOSPHATASE 78 IU/L (46-116); ANION GAP 12 (8-16); ASPARTATE AMINO TRANSFERASE 15 U/L (10-37); BILIRUBIN,TOTAL 0.3 MG/DL (0.1-1.0); BLOOD UREA NITROGEN 12 MG/DL (7-18); BUN/CREATININE RATIO 16.2 (6.6-38.0); CALCIUM 9.1 MG/DL (8.5-10.1); CHLORIDE 104 MMOL/L (99-107); CREATININE 0.74 MG/DL (0.40-0.90); GLUCOSE 100 MG/DL (70-104); LIPASE 80 U/L (73-393); SODIUM 140 MMOL/L (135-145); TOTAL CARBON DIOXIDE 24.1 MMOL/L (24-32); TOTAL PROTEIN 7.1 G/DL (6.4-8.2); eGFR 86 ML/MIN
[2020-10-24] MEDS ORDERED: cephalexin 250mg capsule PO ONE (23:15)
[2020-10-24] MEDS ORDERED: phenazopyridine 100mg tablet PO ONE (23:15)
[2020-10-24] MEDS ORDERED: CEPH250T PO (23:18)
--- NOTE | 2020-10-24 23:24 | NUR ---
PT LEFT WITHOUT DISCHARGE PAPERWORK AND SCRIPT AND DID NOT WANT DC MEDICATIONS. PER [facility], PT WAS IRRITABLE DUE TO WAIT TIME AND DR. BURNETT WAS AWARE .
== END 2020-10-24 23:29 | disposition home or self-care (01) ==
LOC: ER 21:37
DX: N39.0 Urinary tract infection, site not specified (principal); M54.5 Low back pain; R10.30 Lower abdominal pain, unspecified; G43.909 Migraine, unspecified, not intractable, without status migrainosus; G89.29 Other chronic pain; I10 Essential (primary) hypertension; J45.909 Unspecified asthma, uncomplicated; Z90.710 Acquired absence of both cervix and uterus; Z98.51 Tubal ligation status; Z72.89 Other problems related to lifestyle; Z88.8 Allergy status to other drugs, medicaments and biological substances; Z79.899 Other long term (current) drug therapy
CPT/HCPCS: 36415; 80053; 81001; 81025; 83690; 85025; 87088; 99283

== ENCOUNTER 2021-04-16 15:21 | Emergency (ER) | payer MEDICAID ==
[~2021-04-16] VITALS: Ht 147.3 cm; Wt 92.7 kg
[~2021-04-16 15:21] MED LIST changes: -LEVO500T89 PO; +LEVO500T90 PO; -OMEP40CA13 PO; +OMEP40CA21 PO
[2021-04-16 16:28] VITALS: BP 146/99
== END 2021-04-16 16:55 | disposition home or self-care (01) ==
LOC: ER 15:22
DX: R50.9 Fever, unspecified (principal); Z20.822 Contact with and (suspected) exposure to COVID-19; R51.9 Headache, unspecified; R09.81 Nasal congestion; R52 Pain, unspecified; R05.9 Cough, unspecified; G43.909 Migraine, unspecified, not intractable, without status migrainosus; I10 Essential (primary) hypertension; F17.210 Nicotine dependence, cigarettes, uncomplicated; G89.29 Other chronic pain; Z87.440 Personal history of urinary (tract) infections; Z72.89 Other problems related to lifestyle; Z90.710 Acquired absence of both cervix and uterus; Z98.51 Tubal ligation status
CPT/HCPCS: 36415; 99283; U0003; U0005

== ENCOUNTER 2021-05-07 07:14 | Emergency (ER) | payer MEDICAID ==
[~2021-05-07] VITALS: Ht 147.3 cm; Wt 100.0 kg
[2021-05-07 07:33] VITALS: BP 169/106
== END 2021-05-07 08:05 | disposition left against medical advice (07) ==
LOC: ER 07:15
DX: J00 Acute nasopharyngitis [common cold] (principal); R05.9 Cough, unspecified; R09.89 Other specified symptoms and signs involving the circulatory and respiratory systems; Z53.21 Procedure and treatment not carried out due to patient leaving prior to being seen by health care provider

== ENCOUNTER 2021-07-09 17:11 | Emergency (ER) | payer MEDICAID ==
[~2021-07-09] VITALS: Ht 147.3 cm; Wt 90.9 kg
[2021-07-09 17:46] VITALS: BP 155/93
[2021-07-09] MEDS ORDERED: NIRM1TAB PO (18:31)
[2021-07-09] MEDS ORDERED: DEXA6TAB6 PO (18:33)
[2021-07-09] MEDS ORDERED: DEXAMETHASONE 6 MG TABLET PO ONE (18:34)
[2021-07-09] MEDS ORDERED: acetaminophen 325mg tablet PO ONE (19:35)
== END 2021-07-09 20:01 | disposition home or self-care (01) ==
LOC: ER 17:12
DX: U07.1 COVID-19 (principal); B34.9 Viral infection, unspecified; R05.9 Cough, unspecified; G43.909 Migraine, unspecified, not intractable, without status migrainosus; J02.9 Acute pharyngitis, unspecified; R53.83 Other fatigue; I10 Essential (primary) hypertension; G89.29 Other chronic pain; Z87.440 Personal history of urinary (tract) infections; Z90.710 Acquired absence of both cervix and uterus; Z98.51 Tubal ligation status; Z72.89 Other problems related to lifestyle; Z88.8 Allergy status to other drugs, medicaments and biological substances; Z79.2 Long term (current) use of antibiotics; Z79.899 Other long term (current) drug therapy
CPT/HCPCS: 71045; 87635; 99284; C9803; J8540

== ENCOUNTER 2021-10-28 07:28 | Emergency (ER) | payer MEDICAID ==
[~2021-10-28] VITALS: Ht 147.3 cm; Wt 91.4 kg
[~2021-10-28 07:28] MED LIST changes: +DEXA6TAB6 PO; +NIRM1TAB PO
[2021-10-28 08:02] VITALS: BP 164/88
== END 2021-10-28 08:11 | disposition left against medical advice (07) ==
LOC: ER 07:29
DX: H57.12 Ocular pain, left eye (principal); Z53.21 Procedure and treatment not carried out due to patient leaving prior to being seen by health care provider

== ENCOUNTER 2022-10-21 22:22 | Emergency (ER) | payer MEDICAID ==
[~2022-10-21] VITALS: Ht 147.3 cm; Wt 92.3 kg
[~2022-10-21 22:22] MED LIST changes: +LEVO-65 PO; -LEVO500T90 PO; -ORPH100T2 PO; +ORPH100T4 PO
[2022-10-21 22:34] VITALS: BP 178/100
--- NOTE | 2022-10-21 22:46 | NUR ---
XR TO PT BEDSIDE AT THIS TIME
[2022-10-21 22:54] LABS: ALANINE AMINOTRANSFERASE 22 U/L (12-78); ALBUMIN 3.5 G/DL (3.4-5.0); ALBUMIN/GLOBULIN RATIO 1.2 (1.1-1.5); ALKALINE PHOSPHATASE 76 IU/L (46-116); ANION GAP 11 (8-16); ASPARTATE AMINO TRANSFERASE 10 U/L (10-37); BILIRUBIN,TOTAL 0.2 MG/DL (0.1-1.0); BLOOD UREA NITROGEN 10 MG/DL (7-18); BUN/CREATININE RATIO 13.9 (10.0-20.0); CALCIUM 8.9 MG/DL (8.5-10.1); CHLORIDE 106 MMOL/L (99-107); CREATININE 0.72 MG/DL (0.40-0.90); GLUCOSE 113 MG/DL (70-104); POTASSIUM 3.8 MMOL/L (3.5-5.1); SODIUM 144 MMOL/L (135-145); TOTAL CARBON DIOXIDE 27.1 MMOL/L (24-32); TOTAL PROTEIN 6.5 G/DL (6.4-8.2); eGFR 88 ML/MIN
[2022-10-21] MEDS ORDERED: ibuprofen tablet 400 MG TABLET PO ONE (23:20)
[2022-10-21 23:21] LABS: RED BLOOD COUNT 4.71 X10'6 (4.20-5.60)
[2022-10-21 23:23] LABS: BASOPHILS % (AUTO) 0.6 % (0-1); EOSINOPHILS # (AUTO) 0.2 X10'3 (0-0.9); EOSINOPHILS % (AUTO) 2.3 % (0-6); HEMATOCRIT 40.9 % (35.0-45.0); LYMPHOCYTES # (AUTO) 2.9 X10'3 (1.1-4.8); LYMPHOCYTES % (AUTO) 36.8 % (21-51); MEAN CORPUSCULAR HEMOGLOBIN 29.7 PG (27.0-31.0); MEAN CORPUSCULAR HGB CONC 34.1 g/dL (33.0-36.5); MEAN CORPUSCULAR VOLUME 86.9 FL (78-98); MONOCYTES # (AUTO) 0.8 X10'3 (0-0.9); MONOCYTES % (AUTO) 9.9 % (2-12); NEUTROPHILS % (AUTO) 50.4 % (42-75); PLATELET COUNT 259 X10'3 (140-440); RED CELL DISTRIBUTION WIDTH 13.1 % (11.5-14.5); WHITE BLOOD COUNT 7.9 X10'3 (4.5-11.0)
--- NOTE | 2022-10-22 01:49 | NUR ---
pt refused vitals for d/c
== END 2022-10-22 01:52 | disposition home or self-care (01) ==
LOC: ER 22:23
DX: M94.0 Chondrocostal junction syndrome [Tietze] (principal); G43.909 Migraine, unspecified, not intractable, without status migrainosus; I10 Essential (primary) hypertension; G89.29 Other chronic pain; M54.9 Dorsalgia, unspecified; Z88.8 Allergy status to other drugs, medicaments and biological substances; Z79.899 Other long term (current) drug therapy; Z79.1 Long term (current) use of non-steroidal anti-inflammatories (NSAID); Z79.2 Long term (current) use of antibiotics
CPT/HCPCS: 36415; 71045; 80053; 83735; 83880; 84484; 85025; 93005; 99285

== ENCOUNTER 2022-12-09 12:22 | Emergency (ER) | payer MEDICAID | END 2022-12-09 13:33 | disposition left against medical advice (07) | LOC: ER 12:22 | DX: I82.409 Acute embolism and thrombosis of unspecified deep veins of unspecified lower extremity (principal); Z53.21 Procedure and treatment not carried out due to patient leaving prior to being seen by health care provider ==

== ENCOUNTER 2024-02-14 13:59 | Emergency (ER) | payer MEDICAID ==
[~2024-02-14] VITALS: Ht 147.3 cm; Wt 88.2 kg
[~2024-02-14 13:59] MED LIST changes: +ONDA-243 PO; -ONDA4TAB12 PO
[2024-02-14 14:08] VITALS: BP 135/91; PULSE 86; TEMP 97.2; O2SAT 98
[2024-02-14] MEDS: ketorolac trometh 30MG/ML vial 30 MG/ML VIAL IM ONE (14:52)
[2024-02-14] MEDS: proCHLORperazine 10 MG/2 ml inj IM STA (14:53)
[2024-02-14] MEDS: diphenhydrAMINE 50 mg/ml inj IM ONE (14:53)
[2024-02-14 15:34] VITALS: RESP 16
== END 2024-02-14 15:35 | disposition home or self-care (01) ==
LOC: ER 13:59
DX: G43.909 Migraine, unspecified, not intractable, without status migrainosus (principal); I10 Essential (primary) hypertension; Z88.8 Allergy status to other drugs, medicaments and biological substances; Z79.2 Long term (current) use of antibiotics; Z79.899 Other long term (current) drug therapy; Z79.1 Long term (current) use of non-steroidal anti-inflammatories (NSAID); Z90.710 Acquired absence of both cervix and uterus; Z98.51 Tubal ligation status
CPT/HCPCS: 96372; 99284; J0780; J1200; J1885

== ENCOUNTER 2024-11-01 21:31 | Emergency (ER) | payer MEDICAID ==
[~2024-11-01] VITALS: Ht 147.3 cm; Wt 75.1 kg
[2024-11-01 21:34] VITALS: BP 141/61; TEMP 98.4
[2024-11-01 21:56] LABS: BASOPHILS # (AUTO) 0.1 X10'3 (0-0.2); BASOPHILS % (AUTO) 1.3 % (0-1); EOSINOPHILS # (AUTO) 0.1 X10'3 (0-0.9); EOSINOPHILS % (AUTO) 2.1 % (0-6); HEMOGLOBIN 14.3 g/dl (12.0-16.0); LYMPHOCYTES # (AUTO) 2.5 X10'3 (1.1-4.8); LYMPHOCYTES % (AUTO) 37.5 % (21-51); MEAN CORPUSCULAR HEMOGLOBIN 29.2 PG (27.0-31.0); MEAN CORPUSCULAR HGB CONC 33.4 g/dL (33.0-36.5); MEAN CORPUSCULAR VOLUME 87.5 FL (78-98); MEAN PLATELET VOLUME 9.5 FL (7.4-10.4); MONOCYTES # (AUTO) 0.6 X10'3 (0-0.9); MONOCYTES % (AUTO) 8.7 % (2-12); NEUTROPHILS # (AUTO) 3.3 X10'3 (1.8-7.7); NEUTROPHILS % (AUTO) 50.4 % (42-75); PLATELET COUNT 243 X10'3 (140-440); RED BLOOD COUNT 4.92 X10'6 (4.20-5.60); RED CELL DISTRIBUTION WIDTH 13.2 % (11.5-14.5); WHITE BLOOD COUNT 6.6 X10'3 (4.5-11.0)
[2024-11-01 22:02] LABS: BILIRUBIN,URINE NEGATIVE (Neg); CLARITY,URINE CLEAR (Clear); COLOR,URINE YELLOW (Yellow); GLUCOSE, URINE NEGATIVE (Neg); KETONES,URINE NEGATIVE (Neg); LEUKOCYTE ESTERASE ,URINE NEGATIVE (Neg); NITRITES, URINE NEGATIVE (Neg); OCCULT BLOOD,URINE NEGATIVE (Neg); PROTEIN,URINE NEGATIVE (Neg)
[2024-11-01 22:03] LABS: URINE HCG NEGATIVE (NEG)
[2024-11-01 22:05] LABS: UA COLLECTION TYPE CLN CATCH MIDSTREAM
[2024-11-01 22:10] LABS: ALANINE AMINOTRANSFERASE 21 U/L (12-78); ALBUMIN 3.6 G/DL (3.4-5.0); ALBUMIN/GLOBULIN RATIO 1.1 (1.1-1.5); ALKALINE PHOSPHATASE 76 IU/L (46-116); ANION GAP 6 (8-16); ASPARTATE AMINO TRANSFERASE 17 U/L (10-37); BILIRUBIN,TOTAL 0.4 MG/DL (0.1-1.0); BLOOD UREA NITROGEN 12 MG/DL (7-18); BUN/CREATININE RATIO 15.4 (10.0-20.0); CALCIUM 8.8 MG/DL (8.5-10.1); CHLORIDE 105 MMOL/L (99-107); CREATININE 0.78 MG/DL (0.40-0.90); GLUCOSE 83 MG/DL (70-104); LIPASE 45 U/L (16-77); POTASSIUM 3.9 MMOL/L (3.5-5.1); SODIUM 142 MMOL/L (135-145); TOTAL CARBON DIOXIDE 30.9 MMOL/L (24-32); eCRCL 59 ML/MIN; eGFR 80 ML/MIN
== END 2024-11-02 00:33 | disposition left against medical advice (07) ==
LOC: ER 21:31
DX: R10.30 Lower abdominal pain, unspecified (principal); E86.0 Dehydration; Z88.8 Allergy status to other drugs, medicaments and biological substances; Z53.21 Procedure and treatment not carried out due to patient leaving prior to being seen by health care provider
CPT/HCPCS: 36415; 80053; 81003; 81025; 83690; 85025